=== PATIENT | female | born 1950 | race Caucasian/White ===

== ENCOUNTER 2022-01-04 03:47 | Emergency (ER) | payer MEDICARE, OTHER ==
[2022-01-04] MEDS ORDERED: Ketorolac 15 MG/ML SDV IM STA (04:30)
[2022-01-04] MEDS ORDERED: Cyclobenzaprine 10 MG Tab PO ONE (04:31)
[2022-01-04] MEDS ORDERED: oxyCODONE ER 10 MG TAB.ER PO ONE (04:31)
[2022-01-04] MEDS ORDERED: Ketorolac 30 MG/ML SDV IM ONE (04:37)
== END 2022-01-04 05:00 | disposition home or self-care (01) ==
LOC: JD.ED 03:47
DX: M54.50 Low back pain, unspecified (principal); F17.210 Nicotine dependence, cigarettes, uncomplicated; E66.9 Obesity, unspecified; Z68.34 Body mass index [BMI] 34.0-34.9, adult; Z79.899 Other long term (current) drug therapy; Z90.710 Acquired absence of both cervix and uterus
CPT/HCPCS: 96372; 99283; A9270; J1885; 99284

== ENCOUNTER 2022-01-05 14:07 | Emergency (ER) | payer MEDICARE, OTHER ==
[2022-01-05] MEDS ORDERED: HYDROmorphone 0.5 MG/0.5 ML Syringe IM ONE (15:03)
== END 2022-01-05 15:51 | disposition home or self-care (01) ==
LOC: JD.ED 14:07
DX: M54.50 Low back pain, unspecified (principal); G25.81 Restless legs syndrome; E66.9 Obesity, unspecified; Z87.891 Personal history of nicotine dependence; Z68.34 Body mass index [BMI] 34.0-34.9, adult
CPT/HCPCS: 96372; 99283; J1170; 99284

== ENCOUNTER 2022-03-16 16:01 | Emergency (ER) | payer MEDICARE, MEDICAID ==
[2022-03-16] MEDS ORDERED: Sodium Chloride 0.9% 10 ML Syringe FLUSH PRN (16:26)
[2022-03-16 17:47] LABS: ESTIMATED GFR 92 mL/min (>60)
[2022-03-16] MEDS ORDERED: LORazepam 1 MG Tab PO ONE (18:03)
== END 2022-03-16 18:23 | disposition home or self-care (01) ==
LOC: JD.ED 16:01
DX: R07.89 Other chest pain (principal); N39.0 Urinary tract infection, site not specified; K44.9 Diaphragmatic hernia without obstruction or gangrene; F17.210 Nicotine dependence, cigarettes, uncomplicated; E66.9 Obesity, unspecified; Z79.899 Other long term (current) drug therapy; Z68.34 Body mass index [BMI] 34.0-34.9, adult
CPT/HCPCS: 36415; 71045; 80053; 81001; 82553; 83880; 84484; 85025; 85379; 86140; 87086; 99285; A9270; J3490; 93010; 99284

== ENCOUNTER 2023-03-16 16:48 | Emergency (ER) | payer MEDICARE ==
[2023-03-16] MEDS ORDERED: HYDROmorphone 1 MG/ML Syringe IM ONE (17:16)
[2023-03-16] MEDS ORDERED: LORazepam 2 MG/ML SDV IM ONE (18:03)
== END 2023-03-16 19:40 | disposition home or self-care (01) ==
LOC: JD.ED 16:48
DX: M25.551 Pain in right hip (principal); J45.909 Unspecified asthma, uncomplicated; E66.9 Obesity, unspecified; Z68.32 Body mass index [BMI] 32.0-32.9, adult; Z88.5 Allergy status to narcotic agent
CPT/HCPCS: 73502; 93971; 96372; 99284; J1170; J2060

== ENCOUNTER 2024-03-31 19:42 | Emergency (ER) | payer MEDICAID, MEDICARE ==
[2024-03-31 20:26] LABS: BASOPHILS ABSOLUTE AUTO 0.1 K/mm3 (0.0-0.2); BASOPHILS PERCENT AUTO 1.2 % (0.0-1.0); EOSINOPHILS ABSOLUTE AUTO 0.1 K/mm3 (0.0-0.4); EOSINOPHILS PERCENT AUTO 2.8 % (0.0-6.0); HEMATOCRIT 39.9 % (37.0-47.0); LYMPHOCYTES ABSOLUTE AUTO 2.2 K/mm3 (1.0-4.8); LYMPHOCYTES PERCENT AUTO 44.8 % (24.0-44.0); MEAN CORPUSCULAR HEMOGLOBIN 24.5 pg (28.0-32.0); MEAN CORPUSCULAR HGB CONC 30.1 g/dl (32.0-36.0); MEAN CORPUSCULAR VOLUME 81.4 fl (83.0-99.0); MEAN PLATELET VOLUME 9.7 fl (9.4-12.3); MONOCYTES ABSOLUTE AUTO 0.6 K/mm3 (0.0-0.8); MONOCYTES PERCENT AUTO 11.9 % (0.0-8.0); NEUTROPHILS PERCENT AUTO 39.3 % (41.0-71.0); PLATELET COUNT,PLT 306 K/mm3 (150-400); WHITE BLOOD CELL COUNT,WBC 4.96 K/mm3 (3.9-11.3)
[2024-03-31 20:59] LABS: A/G RATIO 0.9 (1-2); ALANINE AMINOTRANSFERASE,ALT 19 U/L (14-59); ALBUMIN 3.9 g/dl (3.4-5.0); ALKALINE PHOSPHATASE 147 U/L (46-116); ANION GAP 15.6 (5-15); ASPARTATE AMNIOTRANSFERASE,AST 16 U/L (15-37); BILIRUBIN TOTAL 0.3 mg/dL (0.2-1.0); BLOOD UREA NITROGEN,BUN 10 mg/dL (7-18); BUN/CREATININE RATIO 16.7 (14-18); CARBON DIOXIDE,CO2 24 mEq/L (21-32); CHLORIDE,CL 104 mEq/L (98-107); CREATININE 0.6 mg/dL (0.55-1.02); EST CRCL DRUG DOSING (CG) 59.98 mL/min; ESTIMATED GFR 95 mL/min (>60); ETHANOL BLOOD MEDICAL 0.19 gm% (0.00); GLUCOSE RANDOM 103 mg/dL (70-99); POTASSIUM,K 3.6 mEq/L (3.5-5.1); PROTEIN TOTAL,TP 8.4 g/dl (6.4-8.2); SODIUM,NA 140 mEq/L (136-145)
[2024-03-31 21:21] LABS: ACETAMINOPHEN 0 ug/mL (10-30)
[2024-03-31 21:52] LABS: APPEARANCE,URINE CLEAR (Clear); BILIRUBIN,URINE NEGATIVE (Negative); COLOR,URINE LIGHT YELLOW (Yellow); GLUCOSE,URINE NEGATIVE (Negative); KETONES,URINE NEGATIVE (Negative); LEUKOCYTE ESTERASE,URINE TRACE (Negative); NITRITE,URINE NEGATIVE (Negative); OCCULT BLOOD,URINE NEGATIVE (Negative); PROTEIN,URINE NEGATIVE (Negative); UROBILINOGEN,URINE 0.2 (0.2-1.0)
[2024-03-31 21:52] LABS: TSH < 0.007 uIU/mL (0.358-3.74)
[2024-03-31 22:04] LABS: BARBITURATE SCREEN,URINE NEGATIVE (CUTOFF=200); BENZODIAZEPINES SCREEN,URINE NEGATIVE (CUTOFF=150); BUPRENORPHINE SCREEN,URINE NEGATIVE (CUTOFF=10); METHADONE SCREEN, URINE NEGATIVE (CUTOFF=200); METHAMPHETAMINES SCREEN, URINE NEGATIVE (CUTOFF=500); OXYCODONE SCREEN,URINE NEGATIVE (CUT0FF=100); THC SCREEN,URINE 20 NG/ML NEGATIVE (CUTOFF=50)
[2024-03-31 22:44] LABS: AMPHETAMINES SCREEN, URINE NEGATIVE (CUTOFF=500)
[2024-03-31 22:56] LABS: BACTERIA,URINE FEW /hpf (FEW); MUCUS,URINE FEW /hpf (FEW); RBC,URINE 0-5 /hpf (0-5); SQUAMOUS EPITHELIAL CELLS,UR 0-5 /hpf (0-5); WBC,URINE 0-5 /hpf (0-5)
== END 2024-04-01 02:45 | disposition home or self-care (01) ==
LOC: JD.ED 19:42
DX: F10.129 Alcohol abuse with intoxication, unspecified (principal); E66.9 Obesity, unspecified; Z88.8 Allergy status to other drugs, medicaments and biological substances; Z79.899 Other long term (current) drug therapy; Z90.710 Acquired absence of both cervix and uterus; Z68.31 Body mass index [BMI] 31.0-31.9, adult
CPT/HCPCS: 36415; 80053; 80143; 80179; 80306; 80307; 81001; 84443; 85025; 87086; 93005; 93010; 99284

== ENCOUNTER 2024-10-11 23:33 | Emergency (ER) | payer MEDICARE ==
[2024-10-12] MEDS ORDERED: Naloxone 0.4 MG/ML SDV IVPUSH PRN ×3 (00:23→01:57)
[2024-10-12] MEDS: fentaNYL 100 MCG/2 ML SDV IM ONE (00:26)
[2024-10-12 01:24] LABS: BASOPHILS ABSOLUTE AUTO 0.1 K/mm3 (0.0-0.2); BASOPHILS PERCENT AUTO 0.6 % (0.0-1.0); EOSINOPHILS ABSOLUTE AUTO 0.3 K/mm3 (0.0-0.4); HEMATOCRIT 37.8 % (37.0-47.0); HEMOGLOBIN 11.9 gm/dl (12.0-16.0); IMMATURE GRAN ABSOLUTE AUTO 0.02 K/mm3 (0.00-0.05); IMMATURE GRAN PERCENT AUTO 0.2 % (0.0-0.4); LYMPHOCYTES ABSOLUTE AUTO 1.1 K/mm3 (1.0-4.8); MEAN CORPUSCULAR HEMOGLOBIN 30.3 pg (28.0-32.0); MEAN CORPUSCULAR HGB CONC 31.5 g/dl (32.0-36.0); MEAN CORPUSCULAR VOLUME 96.2 fl (83.0-99.0); MEAN PLATELET VOLUME 9.5 fl (9.4-12.3); MONOCYTES ABSOLUTE AUTO 0.9 K/mm3 (0.0-0.8); MONOCYTES PERCENT AUTO 10.2 % (0.0-8.0); NEUTROPHILS ABSOLUTE AUTO 6.5 K/mm3 (1.8-7.7); PLATELET COUNT,PLT 232 K/mm3 (150-400); RED BLOOD CELL COUNT 3.93 M/mm3 (4.10-5.30); WHITE BLOOD CELL COUNT,WBC 8.81 K/mm3 (3.9-11.3)
[2024-10-12] MEDS: Sodium Chloride 0.9% 250 ML IV ONE (01:36)
[2024-10-12] MEDS: Ondansetron 4 MG/2 ML SDV IVPUSH ONE (01:37)
[2024-10-12] MEDS: fentaNYL 100 MCG/2 ML SDV IVPUSH ONE ×2 (01:38→02:29)
[2024-10-12 01:44] LABS: INR 1.03; PROTHROMBIN TIME 10.9 SECONDS (9.7-12.0)
[2024-10-12 01:48] LABS: A/G RATIO 0.9 (1-2); ALBUMIN 3.5 g/dl (3.4-5.0); ANION GAP 12.1 (5-15); BILIRUBIN TOTAL 0.4 mg/dL (0.2-1.0); BUN/CREATININE RATIO 31.4 (14-18); CALCIUM 8.8 mg/dL (8.5-10.1); CREATININE 0.7 mg/dL (0.55-1.02); EST CRCL DRUG DOSING (CG) 51.41 mL/min; POTASSIUM,K 4.1 mEq/L (3.5-5.1); PROTEIN TOTAL,TP 7.6 g/dl (6.4-8.2)
[2024-10-12] MEDS: Lidocaine 2% 20 ML MDV SUBCUT ONE (02:07)
[2024-10-12] MEDS: LORazepam 2 MG/ML SDV IVPUSH ONE (02:07)
[2024-10-12] MEDS: Lidocaine 2% 5 ML SDV INJECT ONE (02:56)
[2024-10-12] MEDS: Acetaminophen/oxyCODONE 325-5 MG Tab PO ONE (06:47)
== END 2024-10-12 06:55 | disposition home or self-care (01) ==
LOC: JD.ED 23:33
DX: S52.612A Displaced fracture of left ulna styloid process, initial encounter for closed fracture (principal); S52.502A Unspecified fracture of the lower end of left radius, initial encounter for closed fracture; Z88.5 Allergy status to narcotic agent; Z79.899 Other long term (current) drug therapy; W01.0XXA Fall on same level from slipping, tripping and stumbling without subsequent striking against object, initial encounter; Y93.89 Activity, other specified
CPT/HCPCS: 25565; 36415; 73090; 73100; 80053; 80307; 85025; 85610; 93005; 96372; 96374; 96375; 96376; 99284; A9270; J2003; J2060; J2405; J3010; J7030; 25605; 93010

== ENCOUNTER 2025-02-04 07:00 | Day surgery (SDC) | payer MEDICARE, OTHER ==
[2025-02-04] MEDS: Lactated Ringers 1,000 ML IV SCH (06:55)
[~2025-02-04 07:00] MED LIST: Sodium Chloride 0.9% 10 ML Syringe FLUSH PRN; Sodium Chloride 0.9% 10 ML Syringe FLUSH SCH
[2025-02-04] MEDS ORDERED: Propofol 200 MG/20 ML SDV ONE ×3 (07:48→08:30)
[2025-02-04] MEDS ORDERED: Ondansetron 4 MG/2 ML SDV ONE (08:25)
== END 2025-02-04 09:24 | disposition home or self-care (01) ==
LOC: JD.SDS 07:00
PROVIDERS: ATTEND Orthopaedic Surgery
DX: M65.322 Trigger finger, left index finger (principal); M65.332 Trigger finger, left middle finger; M65.342 Trigger finger, left ring finger; E78.5 Hyperlipidemia, unspecified; E66.9 Obesity, unspecified; E03.9 Hypothyroidism, unspecified; Z88.8 Allergy status to other drugs, medicaments and biological substances; Z79.899 Other long term (current) drug therapy; Z68.34 Body mass index [BMI] 34.0-34.9, adult; Z87.891 Personal history of nicotine dependence
CPT/HCPCS: 26055; J0665; J0690; J2003; J2405; J2704; J7120; 01810; 99100